=== PATIENT | male | born 1980 | race Two or more races ===

== ENCOUNTER 2024-12-14 11:06 | Emergency (ER) | payer MEDICAID, SELFPAY ==
[2024-12-14 11:07] VITALS: BMI 26.6
[2024-12-14 11:40] VITALS: BP 124/70; PULSE 95; RESP 19; TEMP 37; O2SAT 96
--- NOTE | 2024-12-14 12:36 | PD.EDRME ---
Rapid Medical Screening Exam RME Arrival date/time: 12/14/24 11:06 44-year-old male presents emergency department with complaint of abdominal pain nausea vomiting patient reports significant other is ill as well as she is being seen as a patient Chief Complaint: Nausea/Vomiting/Diarrhea Time Seen by Provider: 12/14/24 11:36 Vital signs: Vital Signs Temperature 98.6 F 12/14/24 11:40 Pulse Rate 95 12/14/24 11:40 Respiratory Rate 19 12/14/24 11:40 Blood Pressure 124/70 12/14/24 11:40 Pulse Oximetry (%) 96 12/14/24 11:40 Oxygen Delivery Method Room Air 12/14/24 11:40
[2024-12-14 13:10] LABS: Basophils % (Auto) 0 % (0-2.5); Eosinophils # (Auto) 0.1 Thou/mm3 (0.0-0.5); Eosinophils % (Auto) 2 % (0-10); Hematocrit 43.7 % (41.0-53.0); Hemoglobin 14.1 g/dL (13.5-16.0); Immature Granulocytes % (Auto) 0 % (0-0); Immature Granulocytes Auto 0.02 Thou/mm3 (0.00-0.00); Lymphocytes # (Auto) 0.7 Thou/mm3 (1.0-4.8); Lymphocytes % (Auto) 9 % (10-50); Mean Corpuscular HGB Conc 32.3 g/dl (31.0-37.0); Mean Corpuscular Hemoglobin 26.2 pg (25.0-35.0); Mean Corpuscular Volume 81 fL (80-100); Monocytes # (Auto) 0.5 Thou/mm3 (0.0-0.8); Monocytes % (Auto) 6 % (0-12); Neutrophils # (Auto) 6.6 Thou/mm3 (1.8-7.7); Neutrophils % (Auto) 84 % (37-80); Nucleated Red Blood Cell % 0 /100 WBC (0); Platelet Count 234 Thou/mm3 (140-440); RDW Standard Deviation 39.8 fL (35.1-43.9); Red Blood Count 5.38 Miln/mm3 (4.50-5.90); White Blood Count 7.9 Thou/mm3 (3.8-10.6)
[2024-12-14 13:33] LABS: Alanine Aminotransferase 80 U/L (10-49); Albumin, Serum 4.4 gm/dL (3.5-5.0); Albumin/Globulin Ratio 1.2 (1.2-2.2); Alkaline Phosphatase 58 U/L (46-116); Anion Gap 9 (7-16); Aspartate Amino Transferase 46 U/L (0-34); BUN/Creatinine Ratio 18 Ratio (12-20); Bilirubin,Total 0.6 mg/dL (0.3-1.2); Blood Urea Nitrogen 22 mg/dL (9-23); Calcium 8.8 mg/dL (8.3-10.6); Calcium (Corrected) 8.8 mg/dL (8.5-10.1); Carbon Dioxide 26.4 mMol/L (20.0-31.0); Chloride 104 mMol/L (98-107); Creatinine (Component) 1.2 mg/dL (0.6-1.3); Estimated Creatinine Clearance 72.4 mL/min (>60); Globulin 3.6 gm/dL (2.3-3.5); Glucose 122 mg/dL (74-106); Lipase 33 U/L (12-53); Osmolality,Calculated 281 (275-295); Potassium 4.4 mMol/L (3.4-5.1); Sodium 139 mMol/L (136-145); eGFR > 60 See Note
[2024-12-14] MEDS: IBUPROFEN TAB 400 MG TABLET 800 MG PO (13:39)
[2024-12-14] MEDS: ONDANSETRON ODT 4 MG TABRAP PO (13:40)
[2024-12-14 15:53] LABS: Collection Type, Urine Clean Catch
[2024-12-14 16:02] LABS: Bilirubin,Urine Negative (Negative); Blood,Urine Negative (Negative); Clarity,Urine Clear (Clear/Hazy); Color,Urine Yellow (Lt Yel-Yel); Culture Indicated,Urine Not Indicated; Glucose, Urine Negative (Negative); Ketones,Urine Trace (Negative); Leukocyte Esterase,Urine Negative (Negative); Nitrite,Urine Negative (Negative); Protein,Urine 2+ (Neg - Trace); RBC,Urine 14 /hpf (0-3); Specific Gravity,Urine 1.043 (1.001-1.035); Squamous Epithelial Cell,Urine < 1 /hpf (0-5); Urobilinogen,Urine Negative mg/dL (0.0-1.0); WBC,Urine 2 /hpf (0-5)
--- NOTE | 2024-12-14 18:47 | PD.EDNV ---
Nausea/Vomit./Diarrhea-RME/HPI General Chief complaint: Nausea/Vomiting/Diarrhea Stated complaint: N/V/D X2 DAYS Time Seen by Provider: 12/14/24 11:36 Arrival date/time: 12/14/24 11:06 This is a 44-year-old male that comes in with complaints of nausea vomiting diarrhea for the last 2 days. Patient's son, niece all have the same symptoms. Limitations: no limitations RME / HPI RME / HPI Narrative: 12/14/24 11:06 44-year-old male presents emergency department with complaint of abdominal pain nausea vomiting patient reports significant other is ill as well as she is being seen as a patient Related Data Previous Rx's ?Medication ?Instructions ?Recorded docusate sodium 100 mg capsule 100 mg PO BID #40 caps 05/09/18 (Colace) tramadol 50 mg tablet 100 mg (2 x 50 mg) PO QID PRN pain 05/09/18 #30 tabs amoxicillin 875 mg-potassium 1 tab PO BID #14 tabs 09/30/20 clavulanate 125 mg tablet (Augmentin) ibuprofen 800 mg tablet 800 mg PO Q8H PRN pain #30 tabs 09/30/20 albuterol sulfate 90 mcg/actuation 2 puff inhalation QID PRN 11/25/20 aerosol inhaler shortness of breath or wheezing #18 grams azithromycin 250 mg tablet See Rx Instructions PO .COMPLEX #6 11/25/20 tabs ibuprofen 600 mg tablet (IBU) 600 mg PO QID PRN fever or pain 11/26/20 #30 tabs benzonatate 100 mg capsule 100 mg PO TID PRN cough #30 caps 09/10/22 loratadine 5 mg-pseudoephedrine ER 1 tab PO Q12H PRN congestion #14 09/10/22 120 mg tablet,extended tabs release,12hr (Alavert D-12 Allergy-Sinus) prednisone 10 mg tablet 10 mg PO BID #6 tabs 09/10/22 ondansetron 4 mg disintegrating 4 mg PO Q8H PRN nausea and 03/12/23 tablet vomiting #15 tabs ondansetron 4 mg disintegrating 4 mg PO Q6H PRN nausea and 12/14/24 tablet vomiting #10 tabs Allergies Allergy/AdvReac Type Severity Reaction Status Date / Time acetaminophen (From Vicodin) Allergy Difficulty Verified 09/30/20 12:31 Breathing hydrocodone (From Vicodin) Allergy Difficulty Verified 09/30/20 12:31 Breathing Review of Systems Review of Systems Systems Reviewed: All systems reviewed, normal except as documented Past Medical History Past Medical History NEUROLOGIC: Negative Neurological Disorders or Seizures CARDIAC: Negative Cardiac Disorders or Congestive Heart Failure RESPIRATORY: Negative Chronic Obstructive Pulmonary Disease (COPD) GASTROINTESTINAL: Negative Gastrointestinal Disorders GENITOURINARY: Negative Genitourinary Disorders or Renal Disease MUSCULOSKELETAL: Positive Musculoskeletal Disorders ENDOCRINE: Negative Endocrine Disorders or Diabetes Mellitus Type 1 HEMATOLOGIC: Negative Blood Disorders OTHER HISTORY: Positive Chicken Pox; Negative Autoimmune Disease, Blood Transfusions, Blood Transfusion Reaction or Anesthesia Reactions Family History FAMILY HISTORY: Positive Family Respiratory Disorders (mother), Family Cancer (FATHER,SISTER (STOMACH)) and Family Surgery (SISTER) Social History SMOKING STATUS: Never smoker Travel History EBOLA RISK: No ED Exam General Limitations: Present no limitations General appearance: Present alert and in no apparent distress Head Head exam: Present atraumatic Eye Eye exam: Present normal appearance, PERRL and EOMI ENT ENT exam: Present normal exam, normal oropharynx and mucous membranes moist Neck Neck exam: Present normal inspection, full ROM and trachea midline Chest Chest inspection: Present normal inspection and symmetric chest wall rise Respiratory Respiratory exam: Present normal lung sounds bilaterally Cardiovascular Cardiovascular exam: Present regular rate, normal rhythm and normal heart sounds Abdominal Exam Abdominal exam: Present soft Extremities Exam Extremities exam: Present normal inspection and full ROM Back Exam Back exam: Present normal inspection and full ROM Neurological Exam Neurological exam: Present alert, oriented X3 and CN II-XII intact Psychiatric Psychiatric exam: Present normal affect and normal mood Skin Skin exam: Present warm, dry, intact and normal color Course Quality Measures none Orders Category Date Time Status Bedside Influenza A&B Antigen Test NOW Care 12/14/24 11:47 Completed CBC Stat Lab 12/14/24 12:53 Completed Comprehensive Metabolic Panel Stat Lab 12/14/24 12:53 Completed Lipase Stat Lab 12/14/24 12:53 Completed UA, C/S IF [Urinalysis, C/S if Indicated] Stat Lab 12/14/24 15:45 Completed Ibuprofen Tab [Motrin Tab] Med 12/14/24 12:36 Discontinued 800 mg PO X1 ONE Ondansetron Odt [Zofran Odt] Med 12/14/24 12:36 Discontinued 4 mg PO X1 ONE Vital Signs Vital signs: Vital Signs Temperature 98.6 F 12/14/24 11:40 Pulse Rate 95 12/14/24 11:40 Respiratory Rate 19 12/14/24 11:40 Blood Pressure 124/70 12/14/24 11:40 Pulse Oximetry (%) 96 12/14/24 11:40 Oxygen Delivery Method Room Air 12/14/24 11:40 Nausea/Vomiting/Diarrhea MDM Narrative MDM Narrative:: Pt given ibuprofen and Zofran. Patient's influenza was negative. Labs were unremarkable patient did have a small elevation in neutrophil count and also had elevated liver enzymes. Patient was shown to have blood in his urine. Patient denies urinary symptoms patient denies any abdominal pain or flank pain. I spoke to patient about this at length. I told patient that he could have a kidney stone. Patient feels better with ibuprofen and Zofran. Patient's family members have the same symptoms. Will treat for viral illness. Patient encouraged to get plenty of rest and drink plenty of fluids. Patient told to follow-up with primary provider in 1 to 2 days. Patient data External records reviewed:: [facility] previous records Clinical information provided by:: patient Social determinants that could affect healthcare access:: none Patient has the following chronic illnesses:: none How is presenting disease/condition affected by chronic disease/condition?: no chronic disease Evaluation data The following diagnostics were reviewed and interpreted by me:: lab results Lab and/or radiology exams considered but not ordered:: ct abdomen and pelvis Interpretation Summary: see note Medications / Prescriptions Medications / Prescriptions considered but not ordered:: none Medication administrations:: Medication Administration History Discontinued Medications Ibuprofen (Ibuprofen Tab 400 Mg Tablet) 800 mg PO X1 ONE Stop: 12/14/24 12:37 Last Admin: 12/14/24 13:39 Dose: 800 mg Documented By: ER Ondansetron HCl (Ondansetron Odt 4 Mg Tabrap) 4 mg PO X1 ONE; Protocol Stop: 12/14/24 12:37 Last Admin: 12/14/24 13:40 Dose: 4 mg Documented By: [facility] Consultations Consultation(s) initiated? (list below): No Diagnosis Nausea Differential Diagnosis: gastroenteritis, dehydration and other (uti, kidney stone, uri ) Most likely diagnosis given after review of the tests above:: vomtiing diarrhea likely secondary to uri Admission Indicated Admission indicated?: not indicated Admission Request Was there a request for admission?: No Disposition Plan Disposition Plan: Discharge Discharge Attestation Discharge Attestation: The patient and all family members were given an opportunity to ask questions and understood the discharge instructions. Discharge instructions specifically effects, indications for sooner follow up or return to the emergency department, and the expected course of current diagnosis. Patient condition: Stable Discharge Plan Plan Patient Disposition: HOME (Self Care) Patient condition on transfer: Stable Prescriptions/Referrals Prescriptions/Med Rec: New ondansetron 4 mg tablet,disintegrating 4 mg PO Q6H PRN (Reason: nausea and vomiting) Qty: 10 0RF No Action docusate sodium [Colace] 100 mg capsule 100 mg PO BID Qty: 40 0RF tramadol 50 mg tablet 100 mg PO QID PRN (Reason: pain) Qty: 30 0RF albuterol sulfate 90 mcg/actuation HFA aerosol inhaler 2 puff inhalation QID PRN (Reason: shortness of breath or wheezing) Qty: 18 0RF azithromycin 250 mg tablet See Rx Instructions .ROUTE .COMPLEX Qty: 6 0RF Rx Instructions: take 500 mg today (day 1), then 250 mg for 4 days (days 2-5) ibuprofen [IBU] 600 mg tablet 600 mg PO QID PRN (Reason: fever or pain) Qty: 30 0RF amoxicillin-pot clavulanate [Augmentin] 875-125 mg tablet 1 tab PO BID Qty: 14 0RF ibuprofen 800 mg tablet 800 mg PO Q8H PRN (Reason: pain) Qty: 30 0RF Alavert D-12 Allergy-Sinus 5-120 mg tablet extended release 12 hr 1 tab PO Q12H PRN (Reason: congestion) Qty: 14 0RF prednisone 10 mg tablet 10 mg PO BID Qty: 6 0RF benzonatate 100 mg capsule 100 mg PO TID PRN (Reason: cough) Qty: 30 0RF ondansetron 4 mg tablet,disintegrating 4 mg PO Q8H PRN (Reason: nausea and vomiting) Qty: 15 0RF Referrals: No Primary/Family,Physician [Primary Care Provider] - In 1 week Problem List Clinical Impression: Vomiting, Diarrhea, Hematuria Patient/Caregiver Discharge Instructions Discharge Activity: activity as tolerated Education Materials: ED Vomiting and Diarrhea ... Additional Instructions: Follow-up with primary provider in 1 to 2 days. Come back to the emergency room if symptoms change or worsen. Print Language: Bulgarian Stand Alone Forms: [employer] Award Info., Work/School Release, Patient Portal Info Letter PA/[employer] Supervising Physician PA/[employer] Supervising Physician: [email or web address]
[2024-12-14 18:51] VITALS: BP 108/62; PULSE 86; RESP 18; TEMP 36.7; O2SAT 99
== END 2024-12-14 19:09 | disposition home or self-care (01) ==
PROVIDERS: Nurse Practitioner Primary Care; Emergency Provider Emergency Medicine
DX: R11.2 Nausea with vomiting, unspecified (principal); R19.7 Diarrhea, unspecified; R31.9 Hematuria, unspecified
CPT/HCPCS: 36415; 80053; 81001; 83690; 85025; 87400; 99283; Q0162; A9270